=== PATIENT | female | born 1995 | race Caucasian/White ===

== ENCOUNTER 2017-12-07 22:40 | Observation (INO) | payer BC, OTHER ==
[2017-12-08 04:27] VITALS: BP 115/68; PULSE 100; RESP 16; TEMP 98.2; O2SAT 98
[2017-12-08] MEDS ORDERED: SODIUM CHLORIDE 0.9% FLUSH 10 ML FLUSH IV FLUSH PRN (04:30)
[2017-12-08] MEDS ORDERED: METOCLOPRAMIDE HCL 10 MG/2 ML VIAL IV PUSH PRN (04:30)
[2017-12-08] MEDS ORDERED: MORPHINE SULFATE 4 MG/ML INJ IV PUSH PRN (04:30)
[2017-12-08] MEDS ORDERED: ACETAMINOPHEN 325 MG TAB PO PRN (04:30)
[2017-12-08] MEDS ORDERED: NALOXONE HCL 0.4 MG/ML AMP IV PUSH PRN (04:30)
--- NOTE | 2017-12-08 04:43 | HHI.HP ---
[facility] No Primary Care Physician Admission Diagnosis Diagnoses: Chief Complaint: abdominal pain Travel History International Travel<30 Days: No Contact w/Intl Traveler <30 Da: No History of Present Illness 22 y/o female with no medical history presented to the ED with complaints of abdominal pain. Patient states the pain is in her RLQ with radiation transverse across pelvic area, intermittent, 6/10, stabbing, with no associated nausea and fevers, worse with movement and better with pain medications. She denies any chest pain, sob, or dysuria. Review of Systems Except as stated in HPI: all other systems reviewed are Neg Past Family Social History Past Medical History Patient denies any medical history Past Surgical History C section Allergies: Coded Allergies: No Known Allergies (Verified Allergy, Unknown, 12/07/17) Family History Patient denies any family history Social History Tobacco use: Denies Alcohol use: Socially Physical Exam Vital Signs Vital Signs Date Time Temp Pulse Resp B/P (MAP) Pulse Ox O2 Delivery O2 Flow Rate FiO2 12/08/17 04:27 98.2 100 16 115/68 (84) 98 Physical Exam GENERAL: This is a well-nourished, well-developed patient, in no apparent distress. SKIN: No rashes, ecchymoses or lesions. Cool and dry. HEAD: Atraumatic. Normocephalic. EYES: Pupils equal round and reactive. CARDIOVASCULAR: Regular rate and rhythm without murmurs, gallops, or rubs. RESPIRATORY: Clear to auscultation. Breath sounds equal bilaterally. No wheezes , rales, or rhonchi. GASTROINTESTINAL: Abdomen soft, RLQ tenderness, nondistended. MUSCULOSKELETAL: Extremities without clubbing, cyanosis, or edema. No joint tenderness, effusion, or edema noted. NEUROLOGICAL: Awake and alert. Normal speech. Caprini VTE Risk Assessment Caprini VTE Risk Assessment: No/Low Risk (score <= 1) Caprini Risk Assessment Model Point Value = 1 Point Value = 2 Point Value = 3 Point Value = 5 Age 41-60 Minor surgery BMI > 25 kg/m2 Swollen legs Varicose veins or History of unexplained or recurrent spontaneous Oral contraceptives or hormone replacement Sepsis (< 1 month) Serious lung disease, including pneumonia (< 1 month) Abnormal pulmonary function Acute myocardial infarction Congestive heart failure (< 1 month) History of inflammatory bowel disease Medical patient at bed rest Age 61-74 Arthroscopic surgery Major open surgery (> 45 min) Laparoscopic surgery (> 45 min) Malignancy Confined to bed (> 72 hours) Immobilizing plaster cast Central venous access Age >= 75 History of VTE Family history of VTE Factor V Leiden Prothrombin [id number] Lupus anticoagulant Anticardiolipin antibodies Elevated serum homocysteine Heparin-induced thrombocytopenia Other congenital or acquired thrombophilia Stroke (< 1 month) Elective arthroplasty Hip, pelvis, or leg fracture Acute spinal cord injury (< 1 month) Prophylaxis Regimen Total Risk Factor Score Risk Level Prophylaxis Regimen 0-1 Low Early ambulation 2 Moderate Order ONE of the following: *Sequential Compression Device (SCD) *Heparin 5000 units SQ BID 3-4 Higher Order ONE of the following medications: *Heparin 5000 units SQ TID *Enoxaparin/Lovenox 40 mg SQ daily (WT < 150 kg, CrCl > 30 mL/min) *Enoxaparin/Lovenox 30 mg SQ daily (WT < 150 kg, CrCl > 10-29 mL/min) *Enoxaparin/Lovenox 30 mg SQ BID (WT < 150 kg, CrCl > 30 mL/min) AND/OR *Sequential Compression Device (SCD) 5 or more Highest Order ONE of the following medications: *Heparin 5000 units SQ TID (Preferred with Epidurals) *Enoxaparin/Lovenox 40 mg SQ daily (WT < 150 kg, CrCl > 30 mL/min) *Enoxaparin/Lovenox 30 mg SQ daily (WT < 150 kg, CrCl > 10-29 mL/min) *Enoxaparin/Lovenox 30 mg SQ BID (WT < 150 kg, CrCl > 30 mL/min) AND *Sequential Compression Device (SCD) Assessment and Plan Assessment and Plan 22 y/o female with no medical history presented to the ED with complaints of abdominal pain. Abdominal pain, suspect Appendicitis Abdominal CT reviewed and is suspicious for acute appendicitis -NPO, IVF for hydration -Consult general surgery -Pain management with IV morphine -Antiemetics as needed DVT prophylaxis: SCDs Discussed Condition With Patient and Chela Zhang Dec 08, 2017 04:43
[2017-12-08] MEDS: SODIUM CHLOR 0.9% 1000 ML INJ 1,000 ML IV SCH ×2 (05:29→13:48)
[2017-12-08] MEDS ORDERED: BUPIVACAINE HCL PF 0.25% 30 ML VIAL ONE (06:20)
[2017-12-08] MEDS ORDERED: ceFAZolin INJ 1,000 MG VIAL ONE (06:20)
[2017-12-08] MEDS ORDERED: BUPIVACAINE/EPINEPHRINE 0.5% PF 30 ML VIAL ONE (06:23)
[2017-12-08] MEDS ORDERED: ACETAMINOPHEN 1000 MG/100 ML 100 ML IV ONE (06:30)
[2017-12-08] MEDS ORDERED: MIDAZOLAM HCL 2 MG/2 ML VIAL ONE (07:12)
[2017-12-08] MEDS ORDERED: DO NOT ADM ANY ANTICOAGULANT DRUGS PRN (07:30)
--- NOTE | 2017-12-08 07:50 | MP ---
cc: Rohan Mendoza MD DATE OF OPERATION: 12/08/2017 PREOPERATIVE DIAGNOSIS: Acute appendicitis. POSTOPERATIVE DIAGNOSIS: Acute appendicitis. PROCEDURE PERFORMED: Laparoscopic appendectomy. SURGEON: Rohan Mendoza MD ANESTHESIA: General endotracheal. COMPLICATIONS: None. INDICATIONS FOR PROCEDURE: Ms. Briones is a pleasant 22-year-old female who had a 24-hour history of right lower quadrant abdominal pain. She was seen and evaluated in [place], . CT scan of the abdomen and pelvis was consistent with acute appendicitis. The patient was transferred to [facility] for appendectomy. Risks and benefits of a laparoscopic, possible open appendectomy were discussed with her, and she was agreeable. DETAILS OF PROCEDURE: The patient was identified, brought to the operating room, placed supine on the operating table. After adequate general endotracheal anesthesia was achieved, the abdomen was prepped and draped in standard surgical fashion. Infraumbilical space was anesthetized with 0.25% Marcaine. Infraumbilical incision was made. Dissection was carried down through subcutaneous tissue to midline fascia. Midline fascia was then incised sharply. A finger was then placed in the peritoneal cavity without difficulty. Blunt balloon trocar was inserted, and the abdomen was insufflated to 15 mmHg using CO2 gas. Next, two 5 mm trocars were placed in the lower midline under direct vision after anesthetizing the skin and subcutaneous tissue with 0.25% Marcaine. Attention was directed to the right lower quadrant where an inflamed, distended appendix was seen with omentum wrapped around it. Blunt and hydrodissection was used to free up the appendix completely. The mesentery was then taken down with Harmonic scalpel. Once the cecal base was achieved, two 2-0 Vicryl Endoloops were placed over the appendiceal base. Distal appendix was then transected with the Harmonic scalpel. Appendix was placed into an Endopouch bag and brought out through the infraumbilical port. The appendix was inspected and sent to pathology for analysis. Next, the abdominal cavity was rinsed out with 1 liter of warm saline solution. Appendiceal stump was carefully inspected and there was no evidence of bleeding, no evidence of leak. Endoloops were tested and found to be intact. The patient's bilateral ovaries were then photographed, as they were seen to be enlarged on CT imaging. No other gross abnormalities were noted. All irrigant was removed from the abdominal cavity. The omentum was then placed over the appendiceal stump. All trocars were removed under direct vision. Midline fascia was repaired with 0 Vicryl in a [id number] fashion. Skin was closed with 4-0 Vicryl. The patient tolerated the procedure well, was awakened and brought to recovery in stable condition. MD ISABELL Davison/SYLVESTER , 07:32 AM , 07:48 AM
--- NOTE | 2017-12-08 07:51 | MB ---
cc: Rohan Mendoza MD DATE: 12/01/2017 REASON FOR CONSULTATION: Appendicitis. HISTORY OF PRESENT ILLNESS: Mckayla is a very pleasant 22-year-old female who presented to [place] ED with a 12-hour history of right lower quadrant abdominal pain. She was seen and evaluated and found to have acute appendicitis. She was transferred to [facility] for appendectomy. The patient reports no fever or chills. The pain is mainly in the right lower quadrant and is made worse by movement. She rated the pain as a 6/10. She denies any vaginal discharge or dysuria. As stated, she was seen and evaluated over in [place] ER, worked up, and found to have an acute appendicitis by imaging, lab work, history and physical. PAST MEDICAL HISTORY: None. PAST SURGICAL HISTORY: She has had a . MEDICATIONS: She takes none. ALLERGIES: SHE HAS NO KNOWN DRUG ALLERGIES. FAMILY HISTORY: No history of appendicitis. SOCIAL HISTORY: She denies cigarette use, reports rare alcohol use. She lives over in [place]. REVIEW OF SYSTEMS: Please see HPI. PHYSICAL EXAMINATION: VITAL SIGNS: Temperature 98, pulse 100, blood pressure 115/60, respiratory rate 20. GENERAL: This is a pleasant young female in no apparent distress. HEENT: Pupils equal, round and reactive to light. Extraocular movements intact. Oropharynx is clear and moist. NECK: Supple. No masses. LUNGS: Clear to auscultation bilaterally. HEART: S1, S2. No murmur. ABDOMEN: Soft, tender in the right lower quadrant with some voluntary guarding, no rebound. Positive Rovsing sign, positive psoas sign. She has a low transverse incision from her . EXTREMITIES: Free range of motion x4. NEUROLOGIC: Alert and oriented x3. LABORATORY DATA: White blood cell count 9, hemoglobin 12, platelet count is 267. She has 78% neutrophils. Electrolytes are all within normal limits except for low potassium at 3.4. Her urinalysis is negative. CT scan of the abdomen and pelvis demonstrates a calcified mass in the appendix consistent with appendicolith, and distal inflammation of the appendix consistent with appendicitis. IMPRESSION: Acute appendicitis. PLAN: Risks and benefits of immediate appendectomy were discussed with the patient, and she is agreeable. Operating room was notified and the patient will be brought up. Rohan MD BRENDON Galvan , 07:40 AM , 07:49 AM
[2017-12-08] MEDS ORDERED: SODIUM CHLORIDE 0.9% FLUSH 10 ML FLUSH IV FLUSH SCH (09:00)
[2017-12-08 12:00] VITALS: BP 111/56; PULSE 79; RESP 20; TEMP 95.2; O2SAT 97
[2017-12-08] MEDS ORDERED: ROCURONIUM INJ 50 MG/5 ML SYRINGE IV PUSH ONE (12:00)
[2017-12-08] MEDS ORDERED: KETOROLAC TROMETHAMINE 30 MG/ML (IVP) VIAL IV PUSH ONE (12:00)
[2017-12-08] MEDS ORDERED: PROPOFOL 200 MG/20 ML AMP IV ONE (12:00)
[2017-12-08] MEDS ORDERED: NEOSTIGMINE 5 MG/5 ML SYRINGE IV PUSH ONE (12:00)
[2017-12-08] MEDS ORDERED: GLYCOPYRROLATE 1 MG/5 ML SYRINGE IV PUSH ONE (12:00)
[2017-12-08] MEDS ORDERED: DEXAMETHASONE SOD PHOS 4 MG/ML VIAL IV ONE (12:00)
[2017-12-08] MEDS ORDERED: LIDOCAINE HCL 1% PF 5 ML SYRINGE OTHER ONE (12:00)
[2017-12-08] MEDS ORDERED: ONDANSETRON HCL 4 MG/2 ML VIAL IV ONE (12:00)
--- NOTE | 2017-12-08 15:21 | HHI.PR ---
Subjective Remarks Pt seen and examined following appendectomy for acute appendicitis. Reports feeling comfortable. Denies nausea, vomiting, or significant abdominal pain. Feels hungry. Objective Vital Signs Date Time Temp Pulse Resp B/P (MAP) Pulse Ox O2 Delivery O2 Flow Rate FiO2 12/08/17 12:00 95.2 79 20 111/56 (74) 97 12/08/17 08:15 88 16 105/69 (81) 98 Room Air 12/08/17 08:00 92 16 112/63 (79) 0 Room Air 12/08/17 07:45 97.7 107 16 107/64 (78) 94 Room Air 12/08/17 04:58 16 12/08/17 04:27 98.2 100 16 115/68 (84) 98 I/O 12/07/17 12/07/17 12/07/17 12/08/17 12/08/17 12/08/17 07:00 15:00 23:00 07:00 15:00 23:00 Intake Total 700 ml Output Total 10 ml Balance 690 ml Intake Other 700 ml Output Estimated Blood Loss 10 ml Objective Remarks GENERAL: WN, WD female resting in bed in NAD. SKIN: Warm and dry. HEENT: AT/NC. Pupils equal and round. MMM. NECK: Supple no tender LAD or JVD. HEART: RRR no m/r/g. LUNGS: CTAB without wheezes or crackles. ABDOMEN: Hypoactive BS, soft, NT, ND. Lap incisions c/d/i. EXTREMITIES: No LE edema. 2+ pedal pulses. NEURO: Awake and alert. PSYCH: Appropriate mood and affect. A/P Assessment and Plan 22 year old female admitted overnight for acute appendicitis. General surgery was consulted and patient underwent laparoscopic appendectomy earlier this morning. - Pain control - Antiemetics PRN - Check CBC tomorrow - Post-op care managed by general surgery and patient can be discharged once cleared Discharge Planning Anticipate D/C tomorrow Tiara Singh MD Dec 08, 2017 15:21
[2017-12-08] MEDS ORDERED: ACETAMINOPHEN/HYDROcodone 325 MG/5 MG TAB PO PRN ×2 (15:30)
[2017-12-08 16:00] VITALS: BP 107/98; PULSE 92; RESP 20; TEMP 96.9; O2SAT 98
--- NOTE | 2017-12-08 18:18 | HHI.DCPOC ---
Discharge Care Plan Diagnosis: (1) Appendicitis, acute Goals to Promote Your Health * To prevent worsening of your condition and complications * To maintain your health at the optimal level Directions to Meet Your Goals Take your medications as prescribed Follow your dietary instruction Follow activity as directed Keep your appointments as scheduled Take your immunizations and boosters as scheduled If your symptoms worsen call your PCP, if no PCP go to Urgent Care Center or Emergency Room Smoking is Dangerous to Your Health. Avoid second hand smoke Call the 24-hour hour crisis hotline for domestic abuse at [facility] [place] Dec 08, 2017 18:18
== END 2017-12-08 18:59 | disposition home or self-care (01) ==
LOC: HOR 22:50 → UNDOADMOB 12-08 04:11 → NEPFCDU 12-08 04:11 → UNDODISOB 12-08 18:59
PROVIDERS: ADMIT Family Medicine; ATTEND Family Medicine
DX: K35.80 Unspecified acute appendicitis (principal)
CPT/HCPCS: 00840; 44970; 74177; 80053; 81001; 83690; 84703; 85025; 88304; 96374; 99285; G0378; J0131; J0690; J1100; J1885; J2250; J2270; J2405; J2710; J3010; J7030; Q9967